=== PATIENT | female | born 1955 | race African-American/Black ===

== ENCOUNTER 2017-03-21 19:39 | Emergency (ER) | payer OTHER ==
[~2017-03-21] VITALS: Ht 175.3 cm; Wt 87.1 kg
[2017-03-21 19:44] VITALS: BP 134/81
== END 2017-03-21 21:08 | disposition left against medical advice (07) ==
LOC: ER 19:39
DX: Z53.21 Procedure and treatment not carried out due to patient leaving prior to being seen by health care provider (principal)

== ENCOUNTER → 2020-03-17 | Outpatient (CLI) | payer OTHER ==
[~2020-03-17] MED LIST: LATANOPROST 0.2.5 ML OPHTHALMIC; PERCOCET 5-3251 EACH PO; TIMOLOL MALEATE5 M1 OPHTHALMIC
== END ==
LOC: EDBD → LAB
PROVIDERS: ATTEND Surgery
DX: Z01.812 Encounter for preprocedural laboratory examination (principal); Z20.828 Contact with and (suspected) exposure to other viral communicable diseases

== ENCOUNTER 2020-03-22 06:20 | Day surgery (SDC) | payer OTHER ==
[~2020-03-22] VITALS: Ht 175.3 cm; Wt 90.7 kg
[2020-03-22] VITALS (12 sets, daily range): BP systolic 110–134; BP diastolic 62–90
[~2020-03-22 06:20] MED LIST changes: -PERCOCET 5-3251 EACH PO
--- NOTE | 2020-03-22 08:20 | EKG ---
[facility] [place] [address] ELECTROCARDIOGRAM REPORT Name: BETTY JUAREZ Room #: 150-2 [facility] M.R.#: [id number] Admission: 03/22/20 Attend Phys: Gm Dean MD Discharge: Date of : 59 Report #: [id number] THIS REPORT FOR: cc: Davy Duggan MD, Bernard O. MD Lundgren, Craig H. MD [facility] ~ THIS REPORT FOR: //name// [facility] Test Date: 2020-03-22 Test Time: 08:08:03 Pat Name: BETTY SILVERIO Department: Room: 150 2 Gender: F [employer] Care Social Worker: CLEMENTINE : 1955 Requested By: Gm Dean Order Number: [id number] MD: Dean Bustos Measurements Intervals [place] Rate: 54 P: 27 HI: 179 QRS: -15 QRSD: 118 T: -53 QT: 440 QTc: 417 Interpretive Statements Sinus bradycardia Nonspecific T abnormalities, diffuse leads No previous ECG available for comparison Electronically Signed On 03-22-2020 8:20:34 CDT by Dean Bustos [email or web address] <ELECTRONICALLY SIGNED> By: Dean Bustos MD, [facility] 03/22/20819 7 7 Dean Bustos MD, [facility] /EPI
[2020-03-22] MEDS ORDERED: PERCOCET 5-3251 EACH PO (10:44)
--- NOTE | 2020-03-22 10:48 | O ---
[facility] [place] [address] OPERATIVE REPORT Name: BETTY JUAREZ Room #: 150-2 [facility]..#: [id number] Admission: 03/22/20 Attend Phys: Gm Dean MD Discharge: Date of : 59 Report #: [id number] THIS REPORT FOR: cc: Davy Duggan MD, Bernard O. MD Franey,Gm Kapoor MD ~ CC: Davy Dean DATE OF SERVICE: 03/22/2020 PATIENT OF: Dr. Davy Duggan and Dr. mG Dean. PREOPERATIVE DIAGNOSES: Cholelithiasis, cholecystitis, biliary colic, umbilical hernia. POSTOPERATIVE DIAGNOSES: Cholelithiasis, cholecystitis, biliary colic, umbilical hernia. PROCEDURE: Laparoscopic cholecystectomy with repair of an umbilical hernia. SURGEON: Gm Dean MD ANESTHESIA: General. DESCRIPTION OF PROCEDURE: The patient was brought to the operating room and placed on operative table in the supine position. Sequential compression devices were in place for DVT prophylaxis. The patient underwent a general endotracheal anesthesia and the abdomen was then prepped and draped in a sterile fashion. Skin and subcutaneous tissue around the umbilicus was then infiltrated with 0.5% Marcaine. A transverse infraumbilical skin incision was then performed using #11 scalpel blade. Hemostasis obtained using electrocautery. Dissection was carried down through the subcutaneous tissue to the hernia sac, which was dissected free and the peritoneum was opened. The fascial edges were dissected free around this hernia and a pursestring suture of 0 Vicryl was then placed in the fascia. The 12 mm disposable Bailey port was then inserted through this opening and held into place with the balloon port and the pursestring suture. Pneumoperitoneum was obtained to a level of 10-15 mmHg. Laparoscope was then inserted through this port and two lateral 5 mm Surgiport as well as an upper midline 12-mm Surgiport were all inserted under direct visualization after infiltration with 0.5% Marcaine. An exploration was performed, which revealed numerous adhesions around the inferior aspect of the gallbladder and around the falciform. These adhesions were carefully dissected free using the hook electrocautery and the [place] dissector until the gallbladder was able to be visualized. The gallbladder was somewhat tense and [facility] [address] [place] [address] OPERATIVE REPORT Name: BETTY JUAREZ Room #: 150-2 [facility]#: [id number] Admission: 03/22/20 Attend Phys: Gm Dean MD Discharge: Date of : 59 Report #: [id number] thickened wall with numerous stones. There were no other intraabdominal abnormalities. I was then able to grasp the gallbladder and retract it superiorly and the cystic duct and artery were carefully dissected free. The cystic common bile duct junction, the triangle of safety was examined anteriorly and posteriorly and was clearly identified. The cystic artery was then doubly clipped on each side and divided with the scissors. The cystic duct was then triply clipped on the common bile duct side and doubly clipped on the gallbladder side and divided with the scissors. Gallbladder was then dissected free from the bed using the hook electrocautery. There was a posterior vessel that appeared to be running within the bed and this was controlled with 2 clips. The gallbladder was retracted superiorly and the bed inspected for hemostasis, which was obtained using electrocautery and found to be intact. The gallbladder was then transected and brought out through the periumbilical port and sent as specimen to pathology. The port was then returned to the abdomen. The area was then copiously irrigated with warm saline solution, which was suctioned free and hemostasis was checked and found to be intact. The ports were then all removed under direct visualization, hemostasis intact at each port site. Pneumoperitoneum was released and the periumbilical port was then also removed under direct visualization, hemostasis intact at that port site as well. The hernia defect was then closed and repaired using the 0 Vicryl pursestring suture. Skin was then closed using interrupted vertical mattress 5-0 nylon sutures and the wound was dressed with Band-Aids. The patient was then awakened from the general endotracheal anesthesia, extubated, and taken to recovery room in good condition. Estimated blood loss was approximately 10 mL and the patient tolerated procedure well. All sponge, lap and instrument counts correct x 2. <ELECTRONICALLY SIGNED> By: Gm Dean MD 03/22/20 1048 1033 1045 Gm Dean MD /nt
--- NOTE | 2020-03-22 12:46 | NUR ---
Pt came to unit from PACU approx 1130. A&ox4. Dressings c/d/i. IVF infusing. Pt feeling nauseus. Anti-emetic administered. Call light within reach. Will continue to monitor.
--- NOTE | 2020-03-22 16:09 | NUR ---
CM REVIEWED CHART AND MET WITH PT. PT IS ALERT AND ORIENTED X4. PT IS S/P LAP JOHNATHON. PT REPORTS LIVING AT HOME WITH HER . PT REPORTS BEING FULLY INDEPENDENT WITH ADLS AND AMBULATION. PT REPORTS HER BEDROOM IS ON THE MAIN LEVEL OF THE HOSPITAL. PT REPORTS SHE DOES NOT ANTICIPATE HAVING ANY NEEDS FROM CM.
--- NOTE | 2020-03-24 18:06 | PATH ---
[facility] [address] [place] [address] PATHOLOGY RPT PROCEDURE Name: EVA JUAREZ Room #: DEP [facility]..#: [id number] Admission: 03/22/20 Date of : 59 Discharge: 03/22/20 Report #: [id number] Path Case #: [id number] [facility] Accession Number: [id number] . 01 Material submitted: . gallbladder - GALLBLADDER . 01 Clinical history: . GALLSTONES . 02 Diagnosis: Gallbladder, cholecystectomy: - Mild chronic cholecystitis. - Cholelithiasis. . (IUV:mml; 03/24/2020) [facility] 03/24/2020 1351 Local . 02 Electronically signed: . Krys Andrade MD, Pathologist NPI- [id number] . 01 Gross description: . The specimen is received in formalin labeled "Eva Juarez, gallbladder" and consists of an intact pink-crane to green gallbladder measuring 9.1 x 3.5 x 3.3 cm. The margin is inked black. Opening reveals a lumen filled with gallbladder sludge and multiple multifaceted calculi measuring up to 2.0 cm. The mucosa is eroded green with fibrotic streaks and an average wall thickness of 0.1 cm. No masses are identified. Blackener sections are submitted in A1. (SDY; 03/23/2020) SYU/SYU 03/23/2020 [facility]2 Local . 02 Pathologist provided ICD-10: K80.10 . 02 CPT . 206338 Specimen Comment: A courtesy copy of this report has been sent to [phone] Specimen Comment: [phone] Specimen Comment: Report sent to / DR ORTIZ Performed at: [address] [id number] MD Saul Burgos MD Phone: [phone] Performed at: [address] [address] PATHOLOGY RPT PROCEDURE Name: EVA JUAREZ Room #: DEP [facility].#: [id number] Admission: 03/22/20 Date of : 59 Discharge: 03/22/20 Report #: [id number] Path Case #: [id number] [address] [id number] MD Krys Andrade MD Phone: [phone]
== END 2020-03-22 18:25 | disposition home or self-care (01) ==
LOC: OR → EDBD → OR 06:20 → 4S 06:20 → TBA 06:22 → OR 09:10 → 4S 11:36 → OR 14:39
PROVIDERS: ATTEND Surgery
DX: K80.64 Calculus of gallbladder and bile duct with chronic cholecystitis without obstruction (principal); K42.9 Umbilical hernia without obstruction or gangrene; Z98.890 Other specified postprocedural states; Z79.899 Other long term (current) drug therapy; Z88.8 Allergy status to other drugs, medicaments and biological substances
CPT/HCPCS: 10102; 50010; 50101; 50411; 50555; 50558; 51474; 51489; 52266; 53314; 56462; 56524; 56528; 62110; 62900; 70005